=== PATIENT | female | born 1955 | race Caucasian/White ===

== ENCOUNTER 2021-01-31 11:57 | Day surgery (SDC) | payer OTHER ==
[2021-01-31] MEDS ORDERED: Depo-Medrol 40 MG/ML IM ONE (11:58)
[2021-01-31] MEDS ORDERED: Sodium Chloride 0.9(Preservative Free) 10 ML IJ ONE (11:58)
[2021-01-31] MEDS ORDERED: DIPRIVAN 200 MG/20 ML IV ONE (13:00)
[2021-01-31] MEDS ORDERED: Lactated Ringers 1,000 ML IV ONE (13:39)
--- NOTE | 2021-01-31 14:26 | XRAY ---
22 seconds of fluoroscopy was used in surgery for a right L4-S1 transforaminal BUSTER.
--- NOTE | 2021-01-31 14:31 | XRAY ---
Indication: Right L4-S1 transforaminal BUSTER. Intraoperative fluoroscopy provided for 22 seconds. 3 digital spot image submitted for interpretation demonstrates posterior needle tips projecting over the expected right L4 and L5 nerve roots. Small amount of contrast injected for needle tip placement. Correlate with intraoperative findings/report.
== END 2021-01-31 13:35 ==
LOC: SDC-PAIN 11:57
PROVIDERS: ATTEND Psychiatry & Neurology Pain Medicine
DX: M54.16 Radiculopathy, lumbar region (principal); Z79.899 Other long term (current) drug therapy
CPT/HCPCS: 64483; 64484; 72100; 77003; J1030; J2704; Q9966